=== PATIENT | female | born 1940 | race African-American/Black ===

== ENCOUNTER 2018-10-27 14:04 | Emergency (ER) | payer MEDICARE ==
[2018-10-27] MEDS ORDERED: NACL 0.9% 500 ML 500 ML IV ONE (14:21)
[2018-10-27 14:55] LABS: Basophils # (Auto) 0.1 K/mm3 (0.0-0.1); Basophils % (Auto) 0.5 % (0.0-1.8); Eosinophils # (Auto) 0.1 K/mm3 (0.0-0.4); Eosinophils % (Auto) 0.8 % (0.0-4.3); Hematocrit 38.9 % (30.3-42.9); Hemoglobin 13.1 gm/dl (10.1-14.3); Lymphocytes # (Auto) 1.2 K/mm3 (1.2-5.4); Lymphocytes % (Auto) 10.5 % (13.4-35.0); Mean Corpuscular HGB Conc 34 % (30-34); Mean Corpuscular Volume 92 fl (79-97); Monocytes # (Auto) 0.8 K/mm3 (0.0-0.8); Monocytes % (Auto) 6.9 % (0.0-7.3); Platelet Count 279 K/mm3 (140-440); Red Blood Count 4.24 M/mm3 (3.65-5.03); Red Cell Distribution Width 13.6 % (13.2-15.2)
[2018-10-27 15:10] LABS: Calcium 8.5 mg/dL (8.4-10.2)
[2018-10-27] MEDS ORDERED: TYLENOL PO ONE (15:51)
--- NOTE | 2018-10-27 15:58 | Emergency Department Report ---
ED Allergic Reaction HPI - General Chief complaint: Allergic Reaction Stated complaint: SWOLLEN FACE,THROAT,MOUTH/FRANKY Time Seen by Provider: 10/27/18 14:16 Source: patient Mode of arrival: Ambulatory Limitations: No Limitations - History of Present Illness Initial Comments: Mrs. Campa is a 78 yo [place] speaking female who presents with tongue, lip and throat swelling since last night. Takes lisinopril and hydrochlorothiazide. Additional history was obtained by PCP Dr. Henok Hernández who evaluated patient yesterday. He evaluated Mrs. Campa for cold URI symptoms. She has mild sore throat with difficulty swallowing. She also has eye watering. MD Complaint: facial swelling -: Last night Exposure: unknown Symptoms: facial swelling, lip swelling, difficulty swallowing, other (sore throat) Severity: mild Treatment Prior to Arrival: none Previous Allergy History: other (1 episode in the past) - Related Data Previous Rx's Medication Instructions Recorded Last Taken Type Benzonatate [Tessalon Perle] 100 mg PO BID 7 Days #14 capsule 10/27/18 Unknown Rx Cetirizine HCl [ZyrTEC] 10 mg PO DAILY 7 Days #7 capsule 10/27/18 Unknown Rx Allergies Allergy/AdvReac Type Severity Reaction Status Date / Time No Known Allergies Allergy Unverified 10/27/18 14:07 ED Review of Systems ROS: Stated complaint: SWOLLEN FACE,THROAT,MOUTH/FRANKY Other details as noted in HPI Comment: All other systems reviewed and negative ENT: throat pain Respiratory: cough ED Past Medical Hx - Past Medical History Previous Medical History?: Yes Hx Hypertension: Yes - Surgical History Past Surgical History?: Yes - Social History Smoking Status: Never Smoker Substance Use Type: None - Medications Home Medications: Home Medications Medication Instructions Recorded Confirmed Last Taken Type Benzonatate [Tessalon Perle] 100 mg PO BID 7 Days #14 capsule 10/27/18 Unknown Rx Cetirizine HCl [ZyrTEC] 10 mg PO DAILY 7 Days #7 capsule 10/27/18 Unknown Rx ED Physical Exam - General Limitations: No Limitations General appearance: alert, in no apparent distress, other (frequent cough no stridor no shortness of breath) - Head Head exam: Present: atraumatic, normocephalic - Eye Eye exam: Present: normal appearance - ENT ENT exam: Present: mucous membranes moist, other (slightly edematous right upper lip, normal tongue size, normal neck size) - Neck Neck exam: Present: normal inspection, full ROM - Respiratory Respiratory exam: Present: normal lung sounds bilaterally. Absent: respiratory distress, wheezes, rales, rhonchi - Cardiovascular Cardiovascular Exam: Present: regular rate, normal rhythm, normal heart sounds. Absent: systolic murmur, diastolic murmur, rubs, gallop - GI/Abdominal GI/Abdominal exam: Present: soft, normal bowel sounds. Absent: distended, tenderness, guarding, rebound - Extremities Exam Extremities exam: Present: normal inspection - Back Exam Back exam: Present: normal inspection - Neurological Exam Neurological exam: Present: alert, oriented X3 - Psychiatric Psychiatric exam: Present: normal affect, normal mood - Skin Skin exam: Present: warm, dry, intact, normal color. Absent: rash ED Course Vital Signs 10/27/18 10/27/18 10/27/18 14:25 14:30 14:45 Pulse Rate 72 70 Respiratory 7 L 12 Rate Blood Pressure 103/47 103/47 O2 Sat by Pulse 91 97 99 Oximetry 10/27/18 10/27/18 10/27/18 15:00 15:15 15:30 Pulse Rate 67 66 64 Respiratory 15 13 16 Rate Blood Pressure 102/56 103/47 110/59 O2 Sat by Pulse 99 99 100 Oximetry ED Medical Decision Making - Lab Data Result diagrams: 10/27/18 14:35 10/27/18 14:35 Laboratory Results - last 24 hr 10/27/18 10/27/18 10/27/18 14:35 14:35 14:36 WBC 11.3 H RBC 4.24 Hgb 13.1 Hct 38.9 MCV 92 MCH 31 MCHC 34 RDW 13.6 Plt Count 279 Lymph % (Auto) 10.5 L Mathews % (Auto) 6.9 Eos % (Auto) 0.8 Baso % (Auto) 0.5 Lymph # 1.2 Mathews # 0.8 Eos # 0.1 Baso # 0.1 Seg Neutrophils % 81.3 H Seg Neutrophils # 9.2 H Sodium 129 L Potassium 3.7 Chloride 93.9 L Carbon Dioxide 23 Anion Gap 16 BUN 23 H Creatinine 1.3 H Estimated GFR 40 BUN/Creatinine Ratio 18 Glucose 101 H Calcium 8.5 Blood Type O POSITIVE Antibody Screen Negative - Medical Decision Making Mrs. Campa resents with mild angioedema and upper respiratory infection. She has mild sore throat without evidence of pharyngitis. She has frequent cough on exam. Initially I was concerned that sore throat was caused by angioedema. However with clarification and family's interpretation, Mrs. Menjivar has sore throat. This clarification was also provided by PCP Dr. Henok Hernández. No evidence of impending respiratory distress or failure. She is calm with normal voice. She is breathing closed mouth with respiratory rate 12 breaths per minute with oxygenation 99% on room air. Prescribed Zyrtec and Tessalon Perles. Given strong return precautions. Family member understands to stop lisinopril. I also spoke with PCP Dr. Henok Hernández regarding angioedema. He understands my concern for OSIRIS inhibitor induced angioedema. Critical Care Time: Yes Critical care time in (mins) excluding proc time.: 40 Critical care attestation.: If time is entered above; I have spent that time in minutes in the direct care of this critically ill patient, excluding procedure time. 40 minutes of critical care time excluding procedures were used in the care of the patient. Patient required multiple assessments and interventions. I was concern for airway compromise and impending respiratory failure. I reviewed the electronic medical record. I spoke with internal control consultant involved in the care of the patient. ED Disposition Clinical Impression: OSIRIS inhibitor-aggravated angioedema, URI (upper respiratory infection), Allergic rhinitis Disposition: DC-01 TO HOME OR SELFCARE Is pt being admited?: No Does the pt Need Aspirin: No Condition: Stable Instructions: Angioedema (ED), Allergic Rhinitis (ED), Upper Respiratory Infection (ED) Additional Instructions: Please stop taking lisinopril. Lisinopril and similar medications can cause lip, tongue and throat swelling Prescriptions: Benzonatate [Tessalon Perle] 100 mg PO BID 7 Days #14 capsule Cetirizine HCl [ZyrTEC] 10 mg PO DAILY 7 Days #7 capsule Referrals: HENOK HERNÁNDEZ MD [Staff Physician] - 3-5 Days
[2018-10-27 16:01] VITALS: BP 104/59
== END 2018-10-27 16:55 | disposition home or self-care (01) ==
LOC: ED 14:04
DX: T78.3XXA Angioneurotic edema, initial encounter (principal); J30.9 Allergic rhinitis, unspecified; J06.9 Acute upper respiratory infection, unspecified; I10 Essential (primary) hypertension; X58.XXXA Exposure to other specified factors, initial encounter
CPT/HCPCS: 36415; 80048; 85025; 86850; 86900; 86901; 99283; J7040